=== PATIENT | male | born 1975 | race Caucasian/White ===

== ENCOUNTER 2016-10-22 14:21 | Emergency (ER) | payer SELFPAY ==
[~2016-10-22] VITALS: Ht 165.1 cm; Wt 70.5 kg
[~2016-10-22 14:21] MED LIST: LORTAB 5/500 501 TAB PO; NO HOME MEDICATIONS; PEN-VEE K250 MG PO
[2016-10-22 14:28] VITALS: BP 146/88; TEMP 97.9
[2016-10-22 15:17] VITALS: PULSE 115
== END 2016-10-22 16:05 | disposition home or self-care (01) ==
LOC: COL.ER 14:21
DX: S01.312A Laceration without foreign body of left ear, initial encounter (principal); W22.8XXA Striking against or struck by other objects, initial encounter